=== PATIENT | male | born 1945 ===

== ENCOUNTER 2018-05-14 16:18 | Outpatient (CLI) | payer MEDICARE ==
--- NOTE | 2018-05-17 19:08 | Magnetic Resonance Report ---
MR scan of the cranium was performed without contrast. Pulse sequences included: 1. T1 weighted sagittal and axial images without contrast 2. T2 weighted axial and coronal images 3. FLAIR axial images 4. Diffusion-weighted axial images 5. Apparent diffusion coefficient images 6 Gradient echo axial images Views of the posterior fossa showed a normal craniocervical junction. Cerebellar pontine angles were normal with normal seventh-eighth nerve complexes. Brainstem and cerebellum were normal. The ventricular system showed no dilatation or distortion. Images of the hemispheres showed rare areas of increased signal consistent with mild araiosis. Sinuses, flow voids in the [place], orbits, pituitary and basal ganglia were normal. Impression: Normal MR scan of the cranium without contrast for age.
== END 2018-05-14 16:19 | disposition home or self-care (01) ==
LOC: MRI 16:18
PROVIDERS: ATTEND Specialist
DX: R41.1 Anterograde amnesia (principal)
CPT/HCPCS: 70551